=== PATIENT | female | born 1950 | race Caucasian/White ===

== ENCOUNTER 2018-02-02 06:41 | Day surgery (SDC) | payer MEDICARE, OTHER ==
[~2018-02-02] VITALS: Ht 154.9 cm; Wt 46.3 kg
[~2018-02-02 06:41] MED LIST: ALLO300 PO; CONEST.625; DICL.1SO OD; DULO60; ESTR2 PO; LORA1 PO; MELO7.5; MELO7.5 PO; OMEP40CA12; OXYACE5T; OXYACE5T PO; PANT40; POTCHL10ER; PRED20 PO; PREG25; PROC10 PO; PSEU120ER PO; Prevacid PO; TOLT2; TOLT2 PO; TOLT2ER; TRAM50 PO; VALA500 PO
[2018-02-02] MEDS ORDERED: Zantac25 MG/1 ML (07:25)
[2018-02-02] MEDS ORDERED: Hair, Skin & N1 EACH (07:25)
[2018-02-02] MEDS ORDERED: ACET120S (07:25)
[2018-02-02] MEDS ORDERED: Magnesium27 MG (07:26)
[2018-02-02] MEDS ORDERED: VIT1CAPS12 (07:26)
[2018-02-02] MEDS ORDERED: BRAIN MIGHT-DH1 EACH (07:26)
== END 2018-02-02 08:51 | disposition home or self-care (01) ==
LOC: ORSCSDS 06:41
PROVIDERS: Internal Medicine Gastroenterology
PROC: 0DB68ZX Excision of Stomach, Via Natural or Artificial Opening Endoscopic, Diagnostic (ICD-10-PCS; principal; 2018-02-02 08:00)
DX: K92.0 Hematemesis (principal); R13.10 Dysphagia, unspecified; E78.5 Hyperlipidemia, unspecified; Z87.891 Personal history of nicotine dependence; Z79.899 Other long term (current) drug therapy
CPT/HCPCS: 88305; 88342; J0330; J1980; J2405; J7120

== ENCOUNTER → 2018-03-19 | Outpatient (CLI) | payer MEDICARE, OTHER ==
[~2018-03-19] MED LIST changes: +ACET120S; +BRAIN MIGHT-DH1 EACH; +Hair, Skin & N1 EACH; +Magnesium27 MG; +VIT1CAPS12; +Zantac25 MG/1 ML
[2018-03-19 12:22] LABS: Source, Urine Clean Catch
[2018-03-19 17:45] LABS: Appearance, Urine Clear (Clear); Bilirubin, Urine Neg (Neg); Blood, Urine Neg (Neg); Color, Urine Yellow (P-Yellow); Glucose Qualitative, Urine Neg (Neg); Ketones, Urine Neg (Neg); Leukocyte Esterase, Urine Neg (Neg); Nitrite, Urine Neg (Neg); Protein, Urine Neg (Neg); Urobilinogen, Urine NORM (Normal)
== END | disposition home or self-care (01) ==
LOC: LAB 12:20 → LAB SHORT 12:20
PROVIDERS: Physician Assistant
DX: R77.0 Abnormality of albumin (principal)
CPT/HCPCS: 81003

== ENCOUNTER → 2018-03-22 | Outpatient (CLI) | payer MEDICARE, OTHER ==
[2018-03-22 14:31] LABS: Protein, Urine Quantitative 7.8 mg/dL (0.0-11.9)
== END | disposition home or self-care (01) ==
LOC: LAB SHORT 06:00 → LAB 06:00
PROVIDERS: Physician Assistant
DX: R77.0 Abnormality of albumin (principal)
CPT/HCPCS: 81050; 84156

== ENCOUNTER 2018-05-23 11:43 | Inpatient (IN) | payer MEDICARE, OTHER ==
[~2018-05-23] VITALS: Ht 154.9 cm; Wt 47.0 kg
[2018-05-23] MEDS ORDERED: LEVO750 PO (12:35)
[2018-05-23] MEDS ORDERED: BENZ100A (12:36)
[2018-05-23] MEDS ORDERED: Pantoprazole So40 MG PO (12:36)
[2018-05-23] MEDS ORDERED: Cyclobenzaprine5 MG PO (12:36)
[2018-05-23] MEDS ORDERED: Zantac150 MG PO (12:36)
[2018-05-23 12:43] LABS: BASOPHILS ABSOLUTE AUTO 0.04 K/mm3 (0.00-0.23); BASOPHILS PERCENT AUTO 0 % (0-2); EOSINOPHILS PERCENT AUTO 0 % (0-6); Hematocrit 30.2 % (33.0-51.0); Hemoglobin 9.6 g/dL (11.5-16.0); IMMATURE GRAN ABSOLUTE AUTO 0.37 K/mm3 (0.00-0.10); IMMATURE GRAN PERCENT AUTO 2 % (0-1); LYMPHOCYTES ABSOLUTE AUTO 1.34 K/mm3 (0.84-5.20); LYMPHOCYTES PERCENT AUTO 6 % (21-46); MONOCYTES PERCENT AUTO 5 % (4-13); Mean Corpuscular HGB 29.2 pg (26.0-34.0); Mean Corpuscular HGB Conc 31.8 g/dL (31.5-36.5); Mean Corpuscular Volume 92 fL (80-100); Mean Platelet Volume 8.1 fL (9.1-12.4); NEUTROPHILS ABSOLUTE AUTO 18.23 K/mm3 (1.96-9.15); NEUTROPHILS PERCENT AUTO 87 % (41-73); Platelet Count 575 K/mm3 (150-400); RDW Coefficient Variation 12.8 % (11.7-14.2); RDW Standard Deviation 42.8 fL (35.1-46.3); Red Blood Cell Count 3.29 M/mm3 (3.80-5.20); White Blood Cell Count 20.98 K/mm3 (4.00-11.30)
[2018-05-23 13:05] LABS: Calcium, Blood 9.2 mg/dL (8.5-10.1); Creatinine, Blood 1.25 mg/dL (0.40-1.00); Potassium, Blood 3.5 mmol/L (3.5-5.5)
[2018-05-23] MEDS ORDERED: ACET500 PO (14:04)
[2018-05-23] MEDS ORDERED: DULO60 PO (14:04)
[2018-05-23] MEDS ORDERED: PANT40 PO (14:06)
--- NOTE | 2018-05-23 17:05 | NUR ---
PT ADMITTED/SHIFT SUMMARY PT ADMITTED AT 1615. PT IN STABLE CONDITION. PT TEMP 100.8. 650 TYLENOL GIVEN. PT HAVING DIFFICULTY SWALLOWING. SOFT DIET ORDERED FOR THIS REASON. DR. KIM AWARE. SPEECH EVAL ORDERED FOR PT. PT STATES THAT HER RIBS ACHE FROM COUGHING. PT INSTRUCTED ON SPLINTING WITH A PILLOW. PT & FAMILY ORIENTED TO ROOM. CALL LIGHT IN REACH. WILL CONTINUE TO MONITOR UNTIL TURNOVER IS COMPLETE.
[2018-05-24 05:16] LABS: BASOPHILS ABSOLUTE AUTO 0.02 K/mm3 (0.00-0.23); BASOPHILS PERCENT AUTO 0 % (0-2); EOSINOPHILS PERCENT AUTO 0 % (0-6); Hemoglobin 8.6 g/dL (11.5-16.0); IMMATURE GRAN ABSOLUTE AUTO 0.16 K/mm3 (0.00-0.10); IMMATURE GRAN PERCENT AUTO 1 % (0-1); LYMPHOCYTES PERCENT AUTO 6 % (21-46); MONOCYTES ABSOLUTE AUTO 0.96 K/mm3 (0.16-1.47); MONOCYTES PERCENT AUTO 6 % (4-13); Mean Corpuscular HGB 29.1 pg (26.0-34.0); Mean Corpuscular HGB Conc 30.7 g/dL (31.5-36.5); Mean Platelet Volume 8.5 fL (9.1-12.4); NEUTROPHILS ABSOLUTE AUTO 14.64 K/mm3 (1.96-9.15); NEUTROPHILS PERCENT AUTO 87 % (41-73); Platelet Count 524 K/mm3 (150-400); RDW Coefficient Variation 12.9 % (11.7-14.2); RDW Standard Deviation 44.3 fL (35.1-46.3); Red Blood Cell Count 2.96 M/mm3 (3.80-5.20); White Blood Cell Count 16.78 K/mm3 (4.00-11.30)
[2018-05-24 05:19] LABS: Mean Corpuscular Volume 95 fL (80-100)
[2018-05-24 05:51] LABS: Bun/Creatinine Ratio 8.8 (12.0-20.0); Calcium, Blood 8.8 mg/dL (8.5-10.1); Creatinine, Blood 1.14 mg/dL (0.40-1.00); Potassium, Blood 3.7 mmol/L (3.5-5.5)
--- NOTE | 2018-05-24 07:15 | NUR ---
SHIFT SUMMARY PT A/O. OLGA RESENDIZ. C/O PAIN IN BACK AND MEDICATED PER EMAR X2. NEEDS MEDS CRUSHED IN APPLESAUCE. PUT FOAM EGGCRATE ON BED, SHE SAID IT HELPED A LITTLE BIT. SHE SAID SHE COULDN'T GET MUCH REST. OCCASIONAL CONGESTED SOUNDING COUGH. CALL LIGHT IN REACH.
--- NOTE | 2018-05-24 17:38 | NUR ---
SHIFT SUMMARY PT STATES THAT HER PAIN HAS BEEN MANAGABLE TODAY DUE TO MORE CONTROL OVER HER COUGHING. PT IND IN ROOM & TO THE BATHROOM. NO OTHER COMPLAINTS AT THIS TIME. NO OTHER CHANGES IN ASSESSMENT AT THIS TIME. VSS. PT REMAINS FREE OF FEVER THIS SHIFT. WILL CONTINUE TO MONITOR UNTIL TURNOVER IS COMPLETE.
[2018-05-25 05:16] LABS: BASOPHILS ABSOLUTE AUTO 0.01 K/mm3 (0.00-0.23); BASOPHILS PERCENT AUTO 0 % (0-2); EOSINOPHILS PERCENT AUTO 0 % (0-6); Hematocrit 28.2 % (33.0-51.0); IMMATURE GRAN ABSOLUTE AUTO 0.15 K/mm3 (0.00-0.10); IMMATURE GRAN PERCENT AUTO 1 % (0-1); LYMPHOCYTES ABSOLUTE AUTO 0.79 K/mm3 (0.84-5.20); LYMPHOCYTES PERCENT AUTO 7 % (21-46); MONOCYTES ABSOLUTE AUTO 0.65 K/mm3 (0.16-1.47); MONOCYTES PERCENT AUTO 5 % (4-13); Mean Corpuscular HGB 29.2 pg (26.0-34.0); Mean Corpuscular HGB Conc 31.9 g/dL (31.5-36.5); Mean Platelet Volume 8.4 fL (9.1-12.4); NEUTROPHILS ABSOLUTE AUTO 10.56 K/mm3 (1.96-9.15); NEUTROPHILS PERCENT AUTO 87 % (41-73); Platelet Count 604 K/mm3 (150-400); RDW Coefficient Variation 12.8 % (11.7-14.2); RDW Standard Deviation 42.5 fL (35.1-46.3); Red Blood Cell Count 3.08 M/mm3 (3.80-5.20); White Blood Cell Count 12.16 K/mm3 (4.00-11.30)
[2018-05-25 05:17] LABS: Mean Corpuscular Volume 92 fL (80-100)
[2018-05-25 05:34] LABS: Calcium, Blood 9.1 mg/dL (8.5-10.1); Creatinine, Blood 1.12 mg/dL (0.40-1.00); Potassium, Blood 3.7 mmol/L (3.5-5.5)
--- NOTE | 2018-05-25 06:25 | NUR ---
SHIFT SUMMARY PT A/O C/O PAIN IN RIB AREA MEDICATED PER KIKA Guido TYLENOL X2. REQUESTING PRN PEPCID AND GOT ORDER FROM DR OMALLEY SHE SAID HER HEARTBURN RESOLVED AFTER THAT. SHE SAID SHE WASN'T ABLE TO GET ANY SLEEP/COULD NOT SLEEP. CALL LIGHT IN REACH.
--- NOTE | 2018-05-25 15:49 | NUR ---
PT DISCHARGED PT DISCHARGED AT 1549. PT IN STABLE CONDITION WITH VSS. PT EDUCATED ON DC INSTRUCTIONS & MED CHANGES. PT STATES NO FURTHER QUESTIONS. PT PICKED UP & DRIVEN HOME BY HER SON.
== END 2018-05-25 15:48 | disposition home or self-care (01) | DRG 871 ==
LOC: ER 11:43 → MEDS 15:22
PROVIDERS: Emergency Medicine; ADMIT Student in an Organized Health Care Education/Training Program
DX: A41.9 Sepsis, unspecified organism (principal); J18.9 Pneumonia, unspecified organism; J44.0 Chronic obstructive pulmonary disease with (acute) lower respiratory infection; C85.90 Non-Hodgkin lymphoma, unspecified, unspecified site; I12.9 Hypertensive chronic kidney disease with stage 1 through stage 4 chronic kidney disease, or unspecified chronic kidney disease; N18.3 Chronic kidney disease, stage 3 (moderate); Z87.891 Personal history of nicotine dependence
CPT/HCPCS: 36415; 71046; 80048; 83605; 85025; 87040; 92610; 93005; 93010; 96360; 96361; 99285-25; J1650; J1956; J2930; J7030; J7050

== ENCOUNTER 2018-05-30 12:17 | Inpatient (IN) | payer MEDICARE, OTHER ==
[~2018-05-30] VITALS: Ht 160 cm; Wt 46.5 kg
[~2018-05-30 12:17] MED LIST changes: +ACET500 PO; +BENZ100A; +Cyclobenzaprine5 MG PO; +DULO60 PO; +LEVO750 PO; +PANT40 PO; +Pantoprazole So40 MG PO; +Zantac150 MG PO
[2018-05-30 12:58] LABS: Hematocrit 28.3 % (33.0-51.0); Hemoglobin 8.8 g/dL (11.5-16.0); Mean Corpuscular HGB 28.9 pg (26.0-34.0); Mean Corpuscular HGB Conc 31.1 g/dL (31.5-36.5); Mean Corpuscular Volume 93 fL (80-100); Platelet Count 739 K/mm3 (150-400); RDW Coefficient Variation 13.5 % (11.7-14.2); RDW Standard Deviation 45.7 fL (35.1-46.3); Red Blood Cell Count 3.05 M/mm3 (3.80-5.20); White Blood Cell Count 18.23 K/mm3 (4.00-11.30)
[2018-05-30 13:13] LABS: Albumin, Blood 2.2 g/dL (3.4-5.0); Albumin/Globulin Ratio 0.4 (0.8-1.8); Bilirubin, Total 0.5 mg/dL (0.1-1.0); Bun/Creatinine Ratio 10.4 (12.0-20.0); Calcium, Blood 8.8 mg/dL (8.5-10.1); Creatinine, Blood 1.15 mg/dL (0.40-1.00); Globulin, Blood 5.2 g/dL (2.2-4.0); Potassium, Blood 3.5 mmol/L (3.5-5.5); Total Protein, Blood 7.4 g/dL (6.4-8.2)
[2018-05-30 13:33] LABS: BAND PERCENT MAN 2 % (0-8); BASOPHILS PERCENT MAN 0 % (0-2); EOSINOPHILS PERCENT MAN 0 % (0-6); LYMPHOCYTES ABSOLUTE MAN 0.72 K/mm3 (0.84-5.20); LYMPHOCYTES PERCENT MAN 4 % (21-46); MONOCYTES ABSOLUTE MAN 0.91 K/mm3 (0.16-1.47); MONOCYTES PERCENT MAN 5 % (4-13); NEUTROPHILS ABSOLUTE MAN 16.58 K/mm3 (1.96-9.15); SEG NEUTROPHILS PERCENT MAN 89 % (41-73); TOTAL CELLS COUNTED 100
[2018-05-30] MEDS ORDERED: POTCHL10ER PO (14:03)
[2018-05-30] MEDS ORDERED: LISI5 PO (14:16)
--- NOTE | 2018-05-30 18:41 | NUR ---
SHIFT SUMMARY PATIENT ARRIVED VIA W/C TO THE UNIT. FAMILY AT BEDSIDE. ABLE TO MAKE HER NEEDS KNOWN.
--- NOTE | 2018-05-31 04:56 | NUR ---
Rn summary: Patient is alert and oriented. She had several visitor at beginning of shift. Pt has dangled at the bedside and walks with SBA to BR. Pt has had a non productive cough, has rib pain on left side with cough. Pt medicated at end of day shift and at 0315 for headache with tylenol 1000mg. Pt does get moderate relief. She states she has slept fairly well. Vital signs are stable. Call light in reach.
[2018-05-31 05:05] LABS: BASOPHILS ABSOLUTE AUTO 0.05 K/mm3 (0.00-0.23); BASOPHILS PERCENT AUTO 0 % (0-2); EOSINOPHILS ABSOLUTE AUTO 0.11 K/mm3 (0.00-0.68); EOSINOPHILS PERCENT AUTO 1 % (0-6); Hemoglobin 7.7 g/dL (11.5-16.0); IMMATURE GRAN ABSOLUTE AUTO 0.75 K/mm3 (0.00-0.10); IMMATURE GRAN PERCENT AUTO 6 % (0-1); LYMPHOCYTES ABSOLUTE AUTO 1.28 K/mm3 (0.84-5.20); LYMPHOCYTES PERCENT AUTO 10 % (21-46); MONOCYTES PERCENT AUTO 8 % (4-13); Mean Corpuscular HGB 28.5 pg (26.0-34.0); Mean Corpuscular HGB Conc 30.8 g/dL (31.5-36.5); Mean Corpuscular Volume 93 fL (80-100); Mean Platelet Volume 7.9 fL (9.1-12.4); NEUTROPHILS ABSOLUTE AUTO 9.14 K/mm3 (1.96-9.15); NEUTROPHILS PERCENT AUTO 74 % (41-73); Platelet Count 547 K/mm3 (150-400); RDW Coefficient Variation 13.3 % (11.7-14.2); RDW Standard Deviation 44.7 fL (35.1-46.3); White Blood Cell Count 12.33 K/mm3 (4.00-11.30)
[2018-05-31 05:24] LABS: BAND PERCENT MAN 3 % (0-8); BASOPHILS PERCENT MAN 0 % (0-2); EOSINOPHILS PERCENT MAN 0 % (0-6); LYMPHOCYTES ABSOLUTE MAN 0.49 K/mm3 (0.84-5.20); LYMPHOCYTES PERCENT MAN 4 % (21-46); METAMYELOCYTE ABSOLUTE MAN 0.24 K/mm3 (0.00-0.00); METAMYELOCYTE PERCENT MAN 2 % (0-0); MONOCYTES ABSOLUTE MAN 0.73 K/mm3 (0.16-1.47); MONOCYTES PERCENT MAN 6 % (4-13); MYELOCYTE ABSOLUTE MAN 0.12 K/mm3 (0.00-0.00); MYELOCYTE PERCENT MAN 1 % (0-0); PROMYELOCYTE ABSOLUTE MAN 0.12 K/mm3 (0.00-0.00); PROMYELOCYTE PERCENT MAN 1 % (0-0); SEG NEUTROPHILS PERCENT MAN 83 % (41-73); TOTAL CELLS COUNTED 100
[2018-05-31 05:33] LABS: Alanine Aminotransfer (ALT/SGP 30 U/L (12-78); Albumin, Blood 1.7 g/dL (3.4-5.0); Albumin/Globulin Ratio 0.4 (0.8-1.8); Alk Phos 137 U/L (50-136); Anion Gap 8 mmol/L (6-16); Aspartate Aminotrans (AST/SGOT 31 U/L (12-37); Bilirubin, Total 0.4 mg/dL (0.1-1.0); Blood Urea Nitrogen 12 mg/dL (8-24); Bun/Creatinine Ratio 11.3 (12.0-20.0); CO2, Blood 26 mmol/L (21-32); Chloride, Blood 105 mmol/L (98-108); Creatinine, Blood 1.06 mg/dL (0.40-1.00); Globulin, Blood 4.2 g/dL (2.2-4.0); Glomerular Filtration Rate 55 (60-); Glucose, Blood 87 mg/dL (70-99); Potassium, Blood 3.7 mmol/L (3.5-5.5); Sodium, Blood 139 mmol/L (136-145); Total Protein, Blood 5.9 g/dL (6.4-8.2); Vancomycin, Random 11.2 ug/mL
--- NOTE | 2018-05-31 16:38 | NUR ---
PT A/OX3, PLEASANT AND COOPERATIVE, THE PT IS UP WITH MINIMAL ASSIST, THE PT APPEARS TO BE BREATHING EASILY AT REST MILDLY SOB WITH ACTIVITY, THE PT HAS A PRODUCTIVE COUGH WITH THICK MUCUS , THE PT WAS GIVEN A FLUTTER VALVE TO HELP BRING UP THE PHLEMB, THE PT WAS MEDICATED X1 TODAY FOR HEADACHE DUE TO THE COUGH, THE PT WAS UP INTO THE SHOWER TODAY ASSISTED BY THE BULL GANG SUPERVISOR, CALL LIGHT IN REACH, WILL CONTINUE TO MONITOR AND ASSESS FOR CHANGES
--- NOTE | 2018-06-01 04:45 | NUR ---
67 Y/O FEMALE RESTED COMFORTABLY ALL EVENING WITH NO C/O NAUSEA OR PAIN. PT HAPPY AND COOPERATIVE ALL SHIFT. PTS BED IN LOW POSITION, CALL LIGHT AT SIDE.
[2018-06-01 05:42] LABS: Hematocrit 29.8 % (33.0-51.0); Hemoglobin 9.2 g/dL (11.5-16.0); Mean Corpuscular HGB 28.7 pg (26.0-34.0); Mean Corpuscular HGB Conc 30.9 g/dL (31.5-36.5); Mean Corpuscular Volume 93 fL (80-100); Platelet Count 662 K/mm3 (150-400); RDW Coefficient Variation 13.4 % (11.7-14.2); RDW Standard Deviation 45.6 fL (35.1-46.3); RETICULOCYTE ABSOLUTE 0.0902 M/mm3 (0.0200-0.1100); RETICULOCYTE COUNT PERCENT 2.81 % (0.50-2.50); Red Blood Cell Count 3.21 M/mm3 (3.80-5.20); White Blood Cell Count 14.15 K/mm3 (4.00-11.30)
[2018-06-01 05:50] LABS: Percent Saturation 13.6 % (15.0-50.0)
[2018-06-01 05:57] LABS: Albumin/Globulin Ratio 0.4 (0.8-1.8); Bilirubin, Total 0.4 mg/dL (0.1-1.0); Bun/Creatinine Ratio 8.7 (12.0-20.0); Calcium, Blood 8.8 mg/dL (8.5-10.1); Creatinine, Blood 1.15 mg/dL (0.40-1.00); Globulin, Blood 4.6 g/dL (2.2-4.0); Potassium, Blood 3.6 mmol/L (3.5-5.5); Total Protein, Blood 6.6 g/dL (6.4-8.2)
[2018-06-01 06:10] LABS: BASOPHILS PERCENT MAN 0 % (0-2); EOSINOPHILS ABSOLUTE MAN 0.14 K/mm3 (0.00-0.68); EOSINOPHILS PERCENT MAN 1 % (0-6); LYMPHOCYTES ABSOLUTE MAN 1.13 K/mm3 (0.84-5.20); LYMPHOCYTES PERCENT MAN 8 % (21-46); MONOCYTES PERCENT MAN 5 % (4-13); NEUTROPHILS ABSOLUTE MAN 12.16 K/mm3 (1.96-9.15); SEG NEUTROPHILS PERCENT MAN 86 % (41-73); TOTAL CELLS COUNTED 100
--- NOTE | 2018-06-01 10:52 | NUR ---
HYDRAULIC DREDGE OPERATOR DOC I AGREE WITH THE NURSING STUDENTS AM ASSESMENT OF THE PT, THE PT BREATH SOUNDS WERE DIMINISHED THIS AM, THE PT WAS MEDICATED FOR HEAD ACHE PAIN BY THE SN
--- NOTE | 2018-06-01 17:03 | NUR ---
End of shift summary. Pt is A/O. Pt has been awake during most of the shift with a small nap around noon. Pt states has had a headache and pain in her ribs throughout shift that has been reduced with medication. Pt states that the pain in the ribs if from coughing. Pt complained of depression starting this afternoon and expressed concern over not receiving her home medications which include Cymbalta. Pt's dr was contacted and home medications were added to the pt's orders. Pt reports reduction of depression after Cymbalta administration. Pt has since been calm. Pt took a walk through the unit this afternoon and sat in the lobby for a while. Pt is currently sitting on the side of the bed and states that she has no additional needs at this time.
--- NOTE | 2018-06-02 06:19 | NUR ---
VSS, AFEBRILE, A/O, PT AMB WELL, TOLERATING IV ABX W/OUT ADVERSE EFFECTS, PT SLEPT WELL OVERNOC, NO COMPLAINTS. WILL REPORT TO ON-COMING SHIFT.
--- NOTE | 2018-06-02 07:05 | NUR ---
Assumed care of patient with Bianca SHEPHERD
[2018-06-02 07:11] LABS: Hematocrit 27.1 % (33.0-51.0); Hemoglobin 8.2 g/dL (11.5-16.0); Mean Corpuscular HGB Conc 30.3 g/dL (31.5-36.5); Mean Corpuscular Volume 93 fL (80-100); Mean Platelet Volume 7.9 fL (9.1-12.4); Platelet Count 579 K/mm3 (150-400); RDW Coefficient Variation 13.4 % (11.7-14.2); RDW Standard Deviation 45.5 fL (35.1-46.3); Red Blood Cell Count 2.93 M/mm3 (3.80-5.20); White Blood Cell Count 10.93 K/mm3 (4.00-11.30)
[2018-06-02 07:39] LABS: BAND PERCENT MAN 2 % (0-8); BASOPHILS PERCENT MAN 0 % (0-2); EOSINOPHILS PERCENT MAN 0 % (0-6); LYMPHOCYTES PERCENT MAN 11 % (21-46); METAMYELOCYTE PERCENT MAN 1 % (0-0); MONOCYTES ABSOLUTE MAN 0.76 K/mm3 (0.16-1.47); MONOCYTES PERCENT MAN 7 % (4-13); NEUTROPHILS ABSOLUTE MAN 8.85 K/mm3 (1.96-9.15); SEG NEUTROPHILS PERCENT MAN 79 % (41-73); TOTAL CELLS COUNTED 100
[2018-06-02 07:47] LABS: Bun/Creatinine Ratio 11.7 (12.0-20.0); Calcium, Blood 8.4 mg/dL (8.5-10.1); Creatinine, Blood 1.11 mg/dL (0.40-1.00); Potassium, Blood 4.1 mmol/L (3.5-5.5); Total Protein, Blood 6.3 g/dL (6.4-8.2)
[2018-06-02 07:48] LABS: Albumin, Blood 1.9 g/dL (3.4-5.0); Albumin/Globulin Ratio 0.4 (0.8-1.8); Bilirubin, Total 0.3 mg/dL (0.1-1.0); Globulin, Blood 4.4 g/dL (2.2-4.0)
[2018-06-02 10:52] LABS: Stool Occult Bld Immuno 1 Negative (NEGATIVE)
--- NOTE | 2018-06-02 17:03 | NUR ---
Shift Summary A/O x 4 to self, situation, time, and place. Pleasant and cooperative with care t/o shift. Has been up in room and ambulating in hallway independently. Calls appropriately. Still c/o pain in ribs when coughing, but has not requested pain meds this shift. VSS.
[2018-06-03 05:10] LABS: Hematocrit 27.3 % (33.0-51.0); Hemoglobin 8.3 g/dL (11.5-16.0); Mean Corpuscular HGB 28.2 pg (26.0-34.0); Mean Corpuscular HGB Conc 30.4 g/dL (31.5-36.5); Mean Corpuscular Volume 93 fL (80-100); Mean Platelet Volume 7.9 fL (9.1-12.4); Platelet Count 593 K/mm3 (150-400); RDW Coefficient Variation 13.4 % (11.7-14.2); RDW Standard Deviation 45.1 fL (35.1-46.3); Red Blood Cell Count 2.94 M/mm3 (3.80-5.20); White Blood Cell Count 9.22 K/mm3 (4.00-11.30)
[2018-06-03 05:26] LABS: Bun/Creatinine Ratio 12.2 (12.0-20.0); Calcium, Blood 8.4 mg/dL (8.5-10.1); Creatinine, Blood 1.15 mg/dL (0.40-1.00); Potassium, Blood 3.7 mmol/L (3.5-5.5)
[2018-06-03 05:38] LABS: BAND PERCENT MAN 3 % (0-8); BASOPHILS ABSOLUTE MAN 0.18 K/mm3 (0.00-0.23); BASOPHILS PERCENT MAN 2 % (0-2); EOSINOPHILS PERCENT MAN 0 % (0-6); LYMPHOCYTES ABSOLUTE MAN 1.01 K/mm3 (0.84-5.20); LYMPHOCYTES PERCENT MAN 11 % (21-46); METAMYELOCYTE ABSOLUTE MAN 0.18 K/mm3 (0.00-0.00); METAMYELOCYTE PERCENT MAN 2 % (0-0); MONOCYTES ABSOLUTE MAN 0.36 K/mm3 (0.16-1.47); MONOCYTES PERCENT MAN 4 % (4-13); MYELOCYTE ABSOLUTE MAN 0.09 K/mm3 (0.00-0.00); MYELOCYTE PERCENT MAN 1 % (0-0); NEUTROPHILS ABSOLUTE MAN 7.37 K/mm3 (1.96-9.15); SEG NEUTROPHILS PERCENT MAN 77 % (41-73); TOTAL CELLS COUNTED 100
--- NOTE | 2018-06-03 06:25 | NUR ---
VSS, AFEBRILE, A/OX4, INDEPENDENT, OCC DRY COUGH THAT PT C/O IS PAINFUL TO HER RIBS, PT WAS MOVED FROM ROOM 331 TO 332 FOR FACILITY CONVENIENCE, PT IS COOPERATIVE AND PLEASANT, NO SIGNIFICANT CHANGES NOTED, SLEPT WELL, WILL REPORT TO ON-COMING SHIFT.
--- NOTE | 2018-06-03 09:07 | NUR ---
Assumed care of patient with Bianca SHEPHERD.
[2018-06-03] MEDS ORDERED: GUAI600T33 PO (11:16)
[2018-06-03] MEDS ORDERED: CEFD300 PO (11:18)
[2018-06-03] MEDS ORDERED: FERRO-TIME325 MG PO (11:34)
--- NOTE | 2018-06-03 12:39 | NUR ---
Patient discharged Discharge instructions, meds, and education packets were reviewed with patient. Meds were faxed to [facility]). Belongings were sent home with patient. She was given the opportunity to ask questions before escorted out via w/c by nurse. Patient was discharged to home with via car and instructed to follow-up with PCP in 1-2 weeks.
--- NOTE | 2018-06-03 12:51 | NUR ---
PT DISCHARGE. STUDENT COVERED DICHARGE SUMMARY, PLEASE REFER TO STUDENT NOTES.
== END 2018-06-03 12:40 | disposition home or self-care (01) | DRG 194 ==
LOC: ER 12:17 → MEDS 12:18 → ER 15:28 → MEDS 16:27 → ENPENDDIS 06-03 10:27 → MEDS 06-03 12:40
PROVIDERS: Emergency Medicine; Hospitalist; Physician Assistant; Student in an Organized Health Care Education/Training Program; ADMIT Internal Medicine Endocrinology, Diabetes & Metabolism
DX: J18.9 Pneumonia, unspecified organism (principal); E87.1 Hypo-osmolality and hyponatremia; J44.0 Chronic obstructive pulmonary disease with (acute) lower respiratory infection; Z85.71 Personal history of Hodgkin lymphoma; I12.9 Hypertensive chronic kidney disease with stage 1 through stage 4 chronic kidney disease, or unspecified chronic kidney disease; N18.3 Chronic kidney disease, stage 3 (moderate); D63.1 Anemia in chronic kidney disease; Z87.891 Personal history of nicotine dependence; K21.9 Gastro-esophageal reflux disease without esophagitis; E88.09 Other disorders of plasma-protein metabolism, not elsewhere classified
CPT/HCPCS: 36415; 80048; 80053; 80202; 82274; 82607; 82728; 82746; 83540; 83550; 83605; 84145; 85025; 85045; 87070; 87205; 93005; 93010; 94760; 96361; 96365; 96366; 96372; 99285-25; G0378; J0692; J0696; J1650; J3370; J3480; J7030; J7120

== ENCOUNTER → 2019-01-26 | Outpatient (CLI) | payer MEDICARE, OTHER ==
[~2019-01-26] MED LIST changes: +CEFD300 PO; +FERRO-TIME325 MG PO; +GUAI600T33 PO; +LISI5 PO; +POTCHL10ER PO
[2019-01-29 14:13] LABS: Stool Occult Bld Immuno 1 Positive (NEGATIVE); Stool Occult Bld Immuno 2 Positive (NEGATIVE); Stool Occult Bld Immuno 3 Positive (NEGATIVE)
== END ==
LOC: LAB 18:37 → LAB SHORT 18:37 → LAB FUT 01-22 09:50
PROVIDERS: Physician Assistant
DX: D50.9 Iron deficiency anemia, unspecified (principal)
CPT/HCPCS: 82274

== ENCOUNTER 2019-03-12 12:16 | Day surgery (SDC) | payer MEDICARE, OTHER ==
[~2019-03-12] VITALS: Ht 154.9 cm; Wt 50.0 kg
[2019-03-12] MEDS ORDERED: DULO60 PO (12:47)
== END 2019-03-12 14:53 | disposition home or self-care (01) ==
LOC: ORSCSDS 12:16
PROVIDERS: Internal Medicine Gastroenterology
PROC: 0DBK8ZX Excision of Ascending Colon, Via Natural or Artificial Opening Endoscopic, Diagnostic (ICD-10-PCS; principal; 2019-03-12 14:00)
PROC: 0DBL8ZX Excision of Transverse Colon, Via Natural or Artificial Opening Endoscopic, Diagnostic (ICD-10-PCS; principal; 2019-03-12 14:00)
PROC: 0DB98ZX Excision of Duodenum, Via Natural or Artificial Opening Endoscopic, Diagnostic (ICD-10-PCS; principal; 2019-03-12 14:00)
PROC: 0DB68ZX Excision of Stomach, Via Natural or Artificial Opening Endoscopic, Diagnostic (ICD-10-PCS; principal; 2019-03-12 14:00)
PROC: 0DBC8ZX Excision of Ileocecal Valve, Via Natural or Artificial Opening Endoscopic, Diagnostic (ICD-10-PCS; principal; 2019-03-12 14:00)
PROC: 0DBH8ZX Excision of Cecum, Via Natural or Artificial Opening Endoscopic, Diagnostic (ICD-10-PCS; principal; 2019-03-12 14:00)
DX: R19.5 Other fecal abnormalities (principal); D50.9 Iron deficiency anemia, unspecified; D12.3 Benign neoplasm of transverse colon; D12.0 Benign neoplasm of cecum; D12.2 Benign neoplasm of ascending colon; R10.13 Epigastric pain; K57.30 Diverticulosis of large intestine without perforation or abscess without bleeding; K64.8 Other hemorrhoids; I10 Essential (primary) hypertension; Z87.891 Personal history of nicotine dependence; Z79.899 Other long term (current) drug therapy
CPT/HCPCS: 88305; 88342; J2704; J7120

== ENCOUNTER → 2019-04-07 | Outpatient (CLI) | payer MEDICARE, OTHER ==
[2019-04-08 14:24] LABS: Stool Occult Bld Immuno 1 Negative (NEGATIVE); Stool Occult Bld Immuno 2 Negative (NEGATIVE); Stool Occult Bld Immuno 3 Negative (NEGATIVE)
== END | disposition home or self-care (01) ==
LOC: LAB 09:00 → LAB SHORT 09:00
PROVIDERS: Physician Assistant
DX: D50.9 Iron deficiency anemia, unspecified (principal)
CPT/HCPCS: 82274

== ENCOUNTER 2019-06-10 12:40 | Day surgery (SDC) | payer MEDICARE, OTHER ==
[~2019-06-10 12:40] MED LIST changes: +FAMO20 PO; +OMEP20ER PO
== END 2019-06-10 12:41 | disposition home or self-care (01) ==
LOC: ATC 12:40
DX: M46.22 Osteomyelitis of vertebra, cervical region (principal); I10 Essential (primary) hypertension; Z87.891 Personal history of nicotine dependence; Z88.0 Allergy status to penicillin; Z88.1 Allergy status to other antibiotic agents; Z91.011 Allergy to milk products; Z88.8 Allergy status to other drugs, medicaments and biological substances; Z79.899 Other long term (current) drug therapy
CPT/HCPCS: 96365; J0696

== ENCOUNTER 2019-06-11 00:20 | Day surgery (SDC) | payer MEDICARE, OTHER | END 2019-06-11 09:53 | disposition home or self-care (01) | LOC: ATC 00:20 | DX: M46.22 Osteomyelitis of vertebra, cervical region (principal); I10 Essential (primary) hypertension; Z87.891 Personal history of nicotine dependence; Z88.0 Allergy status to penicillin; Z88.1 Allergy status to other antibiotic agents; Z91.011 Allergy to milk products; Z88.8 Allergy status to other drugs, medicaments and biological substances; Z79.899 Other long term (current) drug therapy | CPT/HCPCS: 96365; J0696 ==

== ENCOUNTER 2019-06-12 00:03 | Day surgery (SDC) | payer MEDICARE, OTHER ==
[2019-06-13] MEDS ORDERED: FERSU300 PO (09:37)
[2019-06-14] MEDS ORDERED: Rocephin 1g1 G/50 ML IV (11:41)
== END 2019-06-12 08:52 | disposition home or self-care (01) ==
LOC: ATC 00:03
DX: M46.22 Osteomyelitis of vertebra, cervical region (principal); D37.05 Neoplasm of uncertain behavior of pharynx; J69.0 Pneumonitis due to inhalation of food and vomit; F32.9 Major depressive disorder, single episode, unspecified; K21.9 Gastro-esophageal reflux disease without esophagitis; Z79.899 Other long term (current) drug therapy; Z88.0 Allergy status to penicillin; Z88.2 Allergy status to sulfonamides; Z88.5 Allergy status to narcotic agent; Z91.011 Allergy to milk products; Z87.891 Personal history of nicotine dependence
CPT/HCPCS: 96365; J0696

== ENCOUNTER 2019-06-13 00:02 | Day surgery (SDC) | payer MEDICARE, OTHER ==
[2019-06-13] MEDS ORDERED: FERSU300 PO (09:37)
[2019-06-14] MEDS ORDERED: Rocephin 1g1 G/50 ML IV (11:41)
== END 2019-06-13 09:32 | disposition home or self-care (01) ==
LOC: ATC 00:02
DX: J69.0 Pneumonitis due to inhalation of food and vomit (principal); D37.05 Neoplasm of uncertain behavior of pharynx; Z87.891 Personal history of nicotine dependence; Z88.5 Allergy status to narcotic agent; Z88.0 Allergy status to penicillin; Z88.2 Allergy status to sulfonamides; Z88.8 Allergy status to other drugs, medicaments and biological substances; Z91.040 Latex allergy status; Z91.011 Allergy to milk products
CPT/HCPCS: 96365; J0696

== ENCOUNTER 2019-06-17 00:08 | Day surgery (SDC) | payer MEDICARE, OTHER ==
[~2019-06-17 00:08] MED LIST changes: +FERSU300 PO; +Rocephin 1g1 G/50 ML IV
[2019-06-17 10:13] LABS: BASOPHILS ABSOLUTE AUTO 0.09 K/mm3 (0.00-0.23); BASOPHILS PERCENT AUTO 2 % (0-2); EOSINOPHILS ABSOLUTE AUTO 0.08 K/mm3 (0.00-0.68); EOSINOPHILS PERCENT AUTO 2 % (0-6); Hematocrit 35.1 % (33.0-51.0); Hemoglobin 10.7 g/dL (11.5-16.0); IMMATURE GRAN ABSOLUTE AUTO 0.03 K/mm3 (0.00-0.10); IMMATURE GRAN PERCENT AUTO 1 % (0-1); LYMPHOCYTES ABSOLUTE AUTO 1.25 K/mm3 (0.84-5.20); LYMPHOCYTES PERCENT AUTO 25 % (21-46); MONOCYTES ABSOLUTE AUTO 0.44 K/mm3 (0.16-1.47); MONOCYTES PERCENT AUTO 9 % (4-13); Mean Corpuscular HGB 29.5 pg (26.0-34.0); Mean Corpuscular HGB Conc 30.5 g/dL (31.5-36.5); Mean Corpuscular Volume 97 fL (80-100); NEUTROPHILS ABSOLUTE AUTO 3.06 K/mm3 (1.96-9.15); NEUTROPHILS PERCENT AUTO 62 % (41-73); Platelet Count 369 K/mm3 (150-400); RDW Coefficient Variation 15.5 % (11.7-14.2); RDW Standard Deviation 55.1 fL (35.1-46.3); Red Blood Cell Count 3.63 M/mm3 (3.80-5.20); White Blood Cell Count 4.95 K/mm3 (4.00-11.30)
[2019-06-17 10:26] LABS: Albumin/Globulin Ratio 0.6 (0.8-1.8); Bilirubin, Total 0.2 mg/dL (0.1-1.0); C-REACTIVE PROTEIN, EXT RANGE 0.721 mg/dL (0.000-0.300); Calcium, Blood 8.7 mg/dL (8.5-10.1); Globulin, Blood 4.8 g/dL (2.2-4.0); Total Protein, Blood 7.8 g/dL (6.4-8.2)
== END 2019-06-17 09:40 | disposition home or self-care (01) ==
LOC: ATC 00:08
PROVIDERS: Internal Medicine
DX: M46.22 Osteomyelitis of vertebra, cervical region (principal); I10 Essential (primary) hypertension; K21.9 Gastro-esophageal reflux disease without esophagitis; G89.29 Other chronic pain; Z87.891 Personal history of nicotine dependence; Z88.0 Allergy status to penicillin; Z88.2 Allergy status to sulfonamides; Z88.1 Allergy status to other antibiotic agents; Z79.899 Other long term (current) drug therapy
CPT/HCPCS: 80053; 85025; 86140; J0696

== ENCOUNTER 2019-06-19 00:08 | Day surgery (SDC) | payer MEDICARE, OTHER | END 2019-06-19 09:39 | disposition home or self-care (01) | LOC: ATC 00:08 | DX: M46.22 Osteomyelitis of vertebra, cervical region (principal); D37.05 Neoplasm of uncertain behavior of pharynx; K21.9 Gastro-esophageal reflux disease without esophagitis; I10 Essential (primary) hypertension; G89.29 Other chronic pain; Z79.899 Other long term (current) drug therapy; Z88.0 Allergy status to penicillin; Z88.2 Allergy status to sulfonamides; Z88.5 Allergy status to narcotic agent; Z87.891 Personal history of nicotine dependence | CPT/HCPCS: 96365; J0696 ==

== ENCOUNTER 2019-06-20 00:12 | Day surgery (SDC) | payer MEDICARE, OTHER | END 2019-06-20 09:59 | disposition home or self-care (01) | LOC: ATC 00:12 | DX: D37.05 Neoplasm of uncertain behavior of pharynx (principal); J69.0 Pneumonitis due to inhalation of food and vomit; Z88.0 Allergy status to penicillin; Z87.891 Personal history of nicotine dependence; K21.9 Gastro-esophageal reflux disease without esophagitis; F32.9 Major depressive disorder, single episode, unspecified; Z79.899 Other long term (current) drug therapy | CPT/HCPCS: 96365; J0696 ==

== ENCOUNTER 2019-06-21 00:09 | Day surgery (SDC) | payer MEDICARE, OTHER | END 2019-06-21 09:50 | disposition home or self-care (01) | LOC: ATC 00:09 | DX: M46.22 Osteomyelitis of vertebra, cervical region (principal); I10 Essential (primary) hypertension; F32.9 Major depressive disorder, single episode, unspecified; K21.9 Gastro-esophageal reflux disease without esophagitis; Z87.891 Personal history of nicotine dependence; Z79.899 Other long term (current) drug therapy | CPT/HCPCS: J0696 ==

== ENCOUNTER 2019-06-24 00:16 | Day surgery (SDC) | payer MEDICARE, OTHER ==
[2019-06-24 09:28] LABS: BASOPHILS ABSOLUTE AUTO 0.08 K/mm3 (0.00-0.23); BASOPHILS PERCENT AUTO 2 % (0-2); EOSINOPHILS ABSOLUTE AUTO 0.14 K/mm3 (0.00-0.68); EOSINOPHILS PERCENT AUTO 3 % (0-6); Hematocrit 35.7 % (33.0-51.0); Hemoglobin 11.3 g/dL (11.5-16.0); IMMATURE GRAN ABSOLUTE AUTO 0.02 K/mm3 (0.00-0.10); IMMATURE GRAN PERCENT AUTO 1 % (0-1); LYMPHOCYTES ABSOLUTE AUTO 1.14 K/mm3 (0.84-5.20); LYMPHOCYTES PERCENT AUTO 26 % (21-46); MONOCYTES PERCENT AUTO 9 % (4-13); Mean Corpuscular HGB 30.5 pg (26.0-34.0); Mean Corpuscular HGB Conc 31.7 g/dL (31.5-36.5); Mean Corpuscular Volume 96 fL (80-100); Mean Platelet Volume 9.1 fL (9.1-12.4); NEUTROPHILS ABSOLUTE AUTO 2.56 K/mm3 (1.96-9.15); NEUTROPHILS PERCENT AUTO 59 % (41-73); Platelet Count 252 K/mm3 (150-400); RDW Coefficient Variation 14.6 % (11.7-14.2); RDW Standard Deviation 51.9 fL (35.1-46.3); Red Blood Cell Count 3.71 M/mm3 (3.80-5.20); White Blood Cell Count 4.34 K/mm3 (4.00-11.30)
[2019-06-24 09:48] LABS: Albumin, Blood 3.2 g/dL (3.4-5.0); Albumin/Globulin Ratio 0.7 (0.8-1.8); Bilirubin, Total 0.5 mg/dL (0.1-1.0); Bun/Creatinine Ratio 14.2 (12.0-20.0); C-REACTIVE PROTEIN, EXT RANGE 0.354 mg/dL (0.000-0.300); Creatinine, Blood 1.06 mg/dL (0.40-1.00); Globulin, Blood 4.8 g/dL (2.2-4.0)
== END 2019-06-24 09:37 | disposition home or self-care (01) ==
LOC: ATC 00:16
PROVIDERS: Internal Medicine
DX: M46.22 Osteomyelitis of vertebra, cervical region (principal); I10 Essential (primary) hypertension; K21.9 Gastro-esophageal reflux disease without esophagitis; Z88.0 Allergy status to penicillin; Z88.8 Allergy status to other drugs, medicaments and biological substances; Z88.1 Allergy status to other antibiotic agents; Z91.011 Allergy to milk products; Z87.891 Personal history of nicotine dependence; Z79.899 Other long term (current) drug therapy
CPT/HCPCS: 80053; 85025; 86140; J0696

== ENCOUNTER 2019-06-26 00:03 | Day surgery (SDC) | payer MEDICARE, OTHER | END 2019-06-26 09:21 | disposition home or self-care (01) | LOC: ATC 00:03 | DX: M46.22 Osteomyelitis of vertebra, cervical region (principal); I10 Essential (primary) hypertension; G89.29 Other chronic pain; K21.9 Gastro-esophageal reflux disease without esophagitis; Z87.891 Personal history of nicotine dependence; Z88.0 Allergy status to penicillin; Z88.2 Allergy status to sulfonamides; Z88.1 Allergy status to other antibiotic agents; Z91.011 Allergy to milk products | CPT/HCPCS: 96365; J0696 ==

== ENCOUNTER 2019-06-27 00:08 | Day surgery (SDC) | payer MEDICARE, OTHER | END 2019-06-27 09:30 | disposition home or self-care (01) | LOC: ATC 00:08 | DX: M46.22 Osteomyelitis of vertebra, cervical region (principal); I10 Essential (primary) hypertension; Z88.0 Allergy status to penicillin; Z88.2 Allergy status to sulfonamides; Z88.1 Allergy status to other antibiotic agents; Z91.011 Allergy to milk products; Z87.891 Personal history of nicotine dependence; Z79.899 Other long term (current) drug therapy | CPT/HCPCS: 96365; J0696 ==

== ENCOUNTER 2019-06-28 00:07 | Day surgery (SDC) | payer MEDICARE, OTHER | END 2019-06-28 09:41 | disposition home or self-care (01) | LOC: ATC 00:07 | DX: M46.22 Osteomyelitis of vertebra, cervical region (principal); I10 Essential (primary) hypertension; Z87.891 Personal history of nicotine dependence; Z88.0 Allergy status to penicillin; Z88.1 Allergy status to other antibiotic agents; Z91.011 Allergy to milk products; Z88.2 Allergy status to sulfonamides; Z88.8 Allergy status to other drugs, medicaments and biological substances; Z79.899 Other long term (current) drug therapy | CPT/HCPCS: 96365; J0696 ==

== ENCOUNTER 2019-07-02 00:05 | Day surgery (SDC) | payer MEDICARE, OTHER | END 2019-07-02 09:39 | disposition home or self-care (01) | DX: M46.22 Osteomyelitis of vertebra, cervical region (principal); D37.05 Neoplasm of uncertain behavior of pharynx; K21.9 Gastro-esophageal reflux disease without esophagitis; I10 Essential (primary) hypertension; F32.9 Major depressive disorder, single episode, unspecified; Z87.891 Personal history of nicotine dependence; Z79.899 Other long term (current) drug therapy; Z88.0 Allergy status to penicillin; Z88.2 Allergy status to sulfonamides; Z88.5 Allergy status to narcotic agent ==

== ENCOUNTER 2019-07-03 00:03 | Day surgery (SDC) | payer MEDICARE, OTHER | END 2019-07-03 09:28 | disposition home or self-care (01) | LOC: ATC 00:03 | DX: J69.0 Pneumonitis due to inhalation of food and vomit (principal); D37.05 Neoplasm of uncertain behavior of pharynx; I10 Essential (primary) hypertension; K21.9 Gastro-esophageal reflux disease without esophagitis; F32.9 Major depressive disorder, single episode, unspecified; Z79.899 Other long term (current) drug therapy; Z87.891 Personal history of nicotine dependence | CPT/HCPCS: 96365; J0696 ==

== ENCOUNTER 2019-07-04 | Day surgery (SDC) | payer MEDICARE, OTHER | END 2019-07-04 09:34 | disposition home or self-care (01) | LOC: ATC | DX: J69.0 Pneumonitis due to inhalation of food and vomit (principal); D37.05 Neoplasm of uncertain behavior of pharynx; I10 Essential (primary) hypertension; F32.9 Major depressive disorder, single episode, unspecified; K21.9 Gastro-esophageal reflux disease without esophagitis; Z87.891 Personal history of nicotine dependence; Z79.899 Other long term (current) drug therapy | CPT/HCPCS: 96365; J0696 ==

== ENCOUNTER 2019-07-05 07:08 | Day surgery (SDC) | payer MEDICARE, OTHER | END 2019-07-05 09:56 | disposition home or self-care (01) | LOC: ATC 07:08 | DX: M46.22 Osteomyelitis of vertebra, cervical region (principal); D37.05 Neoplasm of uncertain behavior of pharynx; I10 Essential (primary) hypertension; F32.9 Major depressive disorder, single episode, unspecified; K21.9 Gastro-esophageal reflux disease without esophagitis; Z88.0 Allergy status to penicillin; Z88.2 Allergy status to sulfonamides; Z88.5 Allergy status to narcotic agent | CPT/HCPCS: 96365; J0696 ==

== ENCOUNTER 2019-07-07 01:58 | Day surgery (SDC) | payer MEDICARE, OTHER | END 2019-07-07 09:24 | disposition home or self-care (01) | LOC: ATC 01:58 | DX: M46.22 Osteomyelitis of vertebra, cervical region (principal); D37.05 Neoplasm of uncertain behavior of pharynx; I10 Essential (primary) hypertension; F32.9 Major depressive disorder, single episode, unspecified; K21.9 Gastro-esophageal reflux disease without esophagitis; Z88.0 Allergy status to penicillin; Z88.2 Allergy status to sulfonamides; Z88.5 Allergy status to narcotic agent | CPT/HCPCS: 96365; J0696 ==

== ENCOUNTER 2019-07-10 00:02 | Day surgery (SDC) | payer MEDICARE, OTHER | END 2019-07-10 09:41 | disposition home or self-care (01) | LOC: ATC 00:02 | DX: M46.22 Osteomyelitis of vertebra, cervical region (principal); D37.05 Neoplasm of uncertain behavior of pharynx; I10 Essential (primary) hypertension; M19.90 Unspecified osteoarthritis, unspecified site; F32.9 Major depressive disorder, single episode, unspecified; K21.9 Gastro-esophageal reflux disease without esophagitis; Z79.899 Other long term (current) drug therapy; Z88.0 Allergy status to penicillin; Z88.2 Allergy status to sulfonamides; Z88.5 Allergy status to narcotic agent | CPT/HCPCS: 96365; J0696 ==

== ENCOUNTER 2019-07-11 00:03 | Day surgery (SDC) | payer MEDICARE, OTHER | END 2019-07-11 09:26 | disposition home or self-care (01) | LOC: ATC 00:03 | DX: M46.22 Osteomyelitis of vertebra, cervical region (principal); I10 Essential (primary) hypertension; K21.9 Gastro-esophageal reflux disease without esophagitis; Z79.899 Other long term (current) drug therapy; Z87.891 Personal history of nicotine dependence; Z88.0 Allergy status to penicillin; Z88.2 Allergy status to sulfonamides; Z88.8 Allergy status to other drugs, medicaments and biological substances; Z88.1 Allergy status to other antibiotic agents; Z91.011 Allergy to milk products | CPT/HCPCS: 96365; J0696 ==

== ENCOUNTER 2019-07-12 00:45 | Day surgery (SDC) | payer MEDICARE, OTHER | END 2019-07-12 09:29 | disposition home or self-care (01) | LOC: ATC 00:45 | DX: M46.22 Osteomyelitis of vertebra, cervical region (principal); Z88.5 Allergy status to narcotic agent; Z88.0 Allergy status to penicillin; Z88.2 Allergy status to sulfonamides; Z88.8 Allergy status to other drugs, medicaments and biological substances; Z91.011 Allergy to milk products; Z87.891 Personal history of nicotine dependence; J69.0 Pneumonitis due to inhalation of food and vomit; D37.05 Neoplasm of uncertain behavior of pharynx; I10 Essential (primary) hypertension; K21.9 Gastro-esophageal reflux disease without esophagitis; Z79.899 Other long term (current) drug therapy | CPT/HCPCS: 96365; J0696 ==

== ENCOUNTER 2019-07-13 00:40 | Day surgery (SDC) | payer MEDICARE, OTHER | END 2019-07-13 09:23 | disposition home or self-care (01) | LOC: ATC 00:40 | DX: M46.22 Osteomyelitis of vertebra, cervical region (principal); J69.0 Pneumonitis due to inhalation of food and vomit; D37.05 Neoplasm of uncertain behavior of pharynx; Z87.891 Personal history of nicotine dependence; Z88.5 Allergy status to narcotic agent; Z88.0 Allergy status to penicillin; Z88.2 Allergy status to sulfonamides; Z88.8 Allergy status to other drugs, medicaments and biological substances; Z91.011 Allergy to milk products; I10 Essential (primary) hypertension; K21.9 Gastro-esophageal reflux disease without esophagitis; F32.9 Major depressive disorder, single episode, unspecified; Z79.899 Other long term (current) drug therapy | CPT/HCPCS: 96365; J0696 ==

== ENCOUNTER 2019-07-14 00:09 | Day surgery (SDC) | payer MEDICARE, OTHER | END 2019-07-14 09:25 | disposition home or self-care (01) | LOC: ATC 00:09 | DX: M46.22 Osteomyelitis of vertebra, cervical region (principal); D37.05 Neoplasm of uncertain behavior of pharynx; Z88.0 Allergy status to penicillin; Z88.2 Allergy status to sulfonamides; Z88.5 Allergy status to narcotic agent | CPT/HCPCS: 96365; J0696 ==

== ENCOUNTER 2019-07-15 00:20 | Day surgery (SDC) | payer MEDICARE, OTHER ==
[2019-07-15 09:48] LABS: BASOPHILS ABSOLUTE AUTO 0.06 K/mm3 (0.00-0.23); BASOPHILS PERCENT AUTO 1 % (0-2); EOSINOPHILS ABSOLUTE AUTO 0.07 K/mm3 (0.00-0.68); EOSINOPHILS PERCENT AUTO 1 % (0-6); Hematocrit 35.3 % (33.0-51.0); Hemoglobin 11.2 g/dL (11.5-16.0); IMMATURE GRAN ABSOLUTE AUTO 0.01 K/mm3 (0.00-0.10); IMMATURE GRAN PERCENT AUTO 0 % (0-1); LYMPHOCYTES ABSOLUTE AUTO 1.13 K/mm3 (0.84-5.20); LYMPHOCYTES PERCENT AUTO 21 % (21-46); MONOCYTES ABSOLUTE AUTO 0.48 K/mm3 (0.16-1.47); MONOCYTES PERCENT AUTO 9 % (4-13); Mean Corpuscular HGB 30.5 pg (26.0-34.0); Mean Corpuscular HGB Conc 31.7 g/dL (31.5-36.5); Mean Corpuscular Volume 96 fL (80-100); Mean Platelet Volume 9.4 fL (9.1-12.4); NEUTROPHILS ABSOLUTE AUTO 3.61 K/mm3 (1.96-9.15); NEUTROPHILS PERCENT AUTO 67 % (41-73); Platelet Count 232 K/mm3 (150-400); RDW Coefficient Variation 12.9 % (11.7-14.2); RDW Standard Deviation 45.6 fL (35.1-46.3); Red Blood Cell Count 3.67 M/mm3 (3.80-5.20); White Blood Cell Count 5.36 K/mm3 (4.00-11.30)
[2019-07-15 10:21] LABS: C-REACTIVE PROTEIN, EXT RANGE 1.59 mg/dL (0.000-0.300)
[2019-07-15 10:23] LABS: Albumin, Blood 3.2 g/dL (3.4-5.0); Albumin/Globulin Ratio 0.8 (0.8-1.8); Bilirubin, Total 0.5 mg/dL (0.1-1.0); Bun/Creatinine Ratio 17.3 (12.0-20.0); Calcium, Blood 9.2 mg/dL (8.5-10.1); Creatinine, Blood 1.04 mg/dL (0.40-1.00); Globulin, Blood 4.2 g/dL (2.2-4.0); Total Protein, Blood 7.4 g/dL (6.4-8.2)
== END 2019-07-15 09:47 | disposition home or self-care (01) ==
LOC: ATC 00:20
PROVIDERS: Internal Medicine
DX: M46.22 Osteomyelitis of vertebra, cervical region (principal); I10 Essential (primary) hypertension; G89.29 Other chronic pain; K21.9 Gastro-esophageal reflux disease without esophagitis; Z87.891 Personal history of nicotine dependence; Z88.0 Allergy status to penicillin; Z88.1 Allergy status to other antibiotic agents; Z88.2 Allergy status to sulfonamides; Z79.899 Other long term (current) drug therapy
CPT/HCPCS: 80053; 85025; 86140; J0696

== ENCOUNTER 2019-07-16 00:10 | Day surgery (SDC) | payer MEDICARE, OTHER | END 2019-07-16 09:40 | disposition home or self-care (01) | LOC: ATC 00:10 | DX: M46.22 Osteomyelitis of vertebra, cervical region (principal); D37.05 Neoplasm of uncertain behavior of pharynx; Z88.0 Allergy status to penicillin; Z88.2 Allergy status to sulfonamides; Z88.5 Allergy status to narcotic agent; I10 Essential (primary) hypertension; K21.9 Gastro-esophageal reflux disease without esophagitis | CPT/HCPCS: 96365; J0696 ==

== ENCOUNTER 2020-07-04 20:42 | Emergency (ER) | payer MEDICARE, OTHER ==
[~2020-07-04] VITALS: Ht 154.9 cm; Wt 47.6 kg
[2020-07-04 22:07] LABS: BASOPHILS ABSOLUTE AUTO 0.05 K/mm3 (0.00-0.23); BASOPHILS PERCENT AUTO 1 % (0-2); EOSINOPHILS ABSOLUTE AUTO 0.05 K/mm3 (0.00-0.68); EOSINOPHILS PERCENT AUTO 1 % (0-6); Hematocrit 30.3 % (33.0-51.0); Hemoglobin 10.3 g/dL (11.5-16.0); IMMATURE GRAN ABSOLUTE AUTO 0.04 K/mm3 (0.00-0.10); IMMATURE GRAN PERCENT AUTO 1 % (0-1); LYMPHOCYTES ABSOLUTE AUTO 1.07 K/mm3 (0.84-5.20); LYMPHOCYTES PERCENT AUTO 13 % (21-46); MONOCYTES ABSOLUTE AUTO 0.51 K/mm3 (0.16-1.47); MONOCYTES PERCENT AUTO 6 % (4-13); Mean Corpuscular HGB 32.2 pg (26.0-34.0); Mean Corpuscular Volume 95 fL (80-100); Mean Platelet Volume 9.4 fL (9.1-12.4); NEUTROPHILS ABSOLUTE AUTO 6.59 K/mm3 (1.96-9.15); NEUTROPHILS PERCENT AUTO 79 % (41-73); Platelet Count 231 K/mm3 (150-400); RDW Coefficient Variation 11.8 % (11.7-14.2); RDW Standard Deviation 40.6 fL (35.1-46.3); White Blood Cell Count 8.31 K/mm3 (4.00-11.30)
[2020-07-04 22:12] LABS: Source, Urine Voided
[2020-07-04] MEDS ORDERED: TRAM50 (22:12)
[2020-07-04] MEDS ORDERED: HYDCHL25 PO (22:12)
[2020-07-04] MEDS ORDERED: PANTOPRAZOLE SO40 M2 PO (22:12)
[2020-07-04 22:14] LABS: Bilirubin, Urine Neg (Neg); Blood, Urine Neg (Neg); Glucose Qualitative, Urine Neg (Neg); Ketones, Urine Neg (Neg); Leukocyte Esterase, Urine 1+ (Neg); Nitrite, Urine Neg (Neg); Protein, Urine Neg (Neg); Specific Gravity, Urine 1.005 (1.003-1.022); Urobilinogen, Urine NORM (Normal)
[2020-07-04 22:28] LABS: Alanine Aminotransfer (ALT/SGP 20 U/L (12-78); Albumin, Blood 3.3 g/dL (3.4-5.0); Alk Phos 82 U/L (50-136); Anion Gap 6 mmol/L (6-16); Aspartate Aminotrans (AST/SGOT 24 U/L (12-37); Bilirubin, Total 0.3 mg/dL (0.1-1.0); Blood Urea Nitrogen 23 mg/dL (8-24); Bun/Creatinine Ratio 16.9 (12.0-20.0); CO2, Blood 26 mmol/L (21-32); Calcium, Blood 8.6 mg/dL (8.5-10.1); Chloride, Blood 106 mmol/L (98-108); Creatinine, Blood 1.36 mg/dL (0.40-1.00); Globulin, Blood 3.3 g/dL (2.2-4.0); Glomerular Filtration Rate 41 (60-); Glucose, Blood 119 mg/dL (70-99); Potassium, Blood 3.6 mmol/L (3.5-5.5); Sodium, Blood 138 mmol/L (136-145); Total Protein, Blood 6.6 g/dL (6.4-8.2); Troponin I <0.015 ng/mL (0.000-0.040)
[2020-07-04 22:28] LABS: Appearance, Urine Hazy (Clear); Bacteria Many /hpf; Color, Urine Yellow (P-Yellow); Red Blood Cells, Urine Not Seen /hpf (0-2); Squamous Epithelial Cells Mod /hpf (Few); White Blood Cells, Urine 50-100 /hpf (0-5)
[2020-07-04] MEDS ORDERED: CEFD300 PO (22:42)
== END 2020-07-04 23:46 | disposition home or self-care (01) ==
LOC: ER 20:42
PROVIDERS: Emergency Medicine
DX: R55 Syncope and collapse (principal); I12.9 Hypertensive chronic kidney disease with stage 1 through stage 4 chronic kidney disease, or unspecified chronic kidney disease; N18.30 Chronic kidney disease, stage 3 unspecified; Z79.899 Other long term (current) drug therapy; Z88.0 Allergy status to penicillin; Z88.1 Allergy status to other antibiotic agents; Z91.011 Allergy to milk products; Z87.891 Personal history of nicotine dependence
CPT/HCPCS: 71045; 80053; 81001; 84484; 85025; 87077; 87086; 87186; 93005; 93010; 96365; 99284-25; J0696; J7030

== ENCOUNTER 2020-10-21 14:01 | Inpatient (IN) | payer OTHER, MEDICARE ==
[~2020-10-21] VITALS: Ht 165.1 cm; Wt 49.9 kg
[~2020-10-21 14:01] MED LIST changes: +HYDCHL25 PO; +PANTOPRAZOLE SO40 M2 PO; +TRAM50
[2020-10-21 15:38] LABS: SARS-Cov-2 (COVID-19) PCR, MMC NEGATIVE (NEGATIVE)
[2020-10-21 16:08] LABS: BASOPHILS ABSOLUTE AUTO 0.04 K/mm3 (0.00-0.23); BASOPHILS PERCENT AUTO 1 % (0-2); EOSINOPHILS ABSOLUTE AUTO 0.05 K/mm3 (0.00-0.68); EOSINOPHILS PERCENT AUTO 1 % (0-6); Hematocrit 33.7 % (33.0-51.0); IMMATURE GRAN ABSOLUTE AUTO 0.04 K/mm3 (0.00-0.10); IMMATURE GRAN PERCENT AUTO 1 % (0-1); LYMPHOCYTES ABSOLUTE AUTO 0.96 K/mm3 (0.84-5.20); LYMPHOCYTES PERCENT AUTO 13 % (21-46); MONOCYTES ABSOLUTE AUTO 0.46 K/mm3 (0.16-1.47); MONOCYTES PERCENT AUTO 6 % (4-13); Mean Corpuscular HGB 31.6 pg (26.0-34.0); Mean Corpuscular HGB Conc 32.6 g/dL (31.5-36.5); Mean Corpuscular Volume 97 fL (80-100); Mean Platelet Volume 9.1 fL (9.1-12.4); NEUTROPHILS ABSOLUTE AUTO 6.12 K/mm3 (1.96-9.15); NEUTROPHILS PERCENT AUTO 80 % (41-73); Platelet Count 278 K/mm3 (150-400); RDW Coefficient Variation 11.7 % (11.7-14.2); RDW Standard Deviation 41.3 fL (35.1-46.3); Red Blood Cell Count 3.48 M/mm3 (3.80-5.20); White Blood Cell Count 7.67 K/mm3 (4.00-11.30)
--- NOTE | 2020-10-21 16:18 | NUR ---
PT TRANSFERED TO [facility] VIA BED FROM FLOOR. History, Chart, Medications and Allergies reviewed before start of procedure. Lungs clear T/O to Auscultation. Patient confirms NPO status and agrees with scheduled surgery. Pre-Op teaching done. Pt verbalizes understanding.
[2020-10-21 16:37] LABS: Albumin, Blood 4.1 g/dL (3.4-5.0); Albumin/Globulin Ratio 1.1 (0.8-1.8); Bilirubin, Total 0.5 mg/dL (0.1-1.0); Bun/Creatinine Ratio 12.2 (12.0-20.0); Calcium, Blood 9.5 mg/dL (8.5-10.1); Creatinine, Blood 1.31 mg/dL (0.40-1.00); Globulin, Blood 3.9 g/dL (2.2-4.0); Potassium, Blood 3.9 mmol/L (3.5-5.5)
--- NOTE | 2020-10-21 16:38 | NUR ---
ASSUMED CARE AND REPORT FROM YURI GARCIA FOR EKG. PT HAS A NEGATIVE COVID.
--- NOTE | 2020-10-21 17:29 | NUR ---
PT TO UNIT FROM [facility] WITH EMS AT ABOUT 1450. TRANSFERED FROM [facility] TO BED. PT IS A/O, VSS. PT REPORTS PAIN AT R HIP WITH MOVEMENT, SCM INTACT TO L LEG. NOTIFIED DR. REYNOSO OF PT ARRIVAL, DR. BARRIOS IN TO SEE PT AT ABOUT 1530. WILL PREP PT FOR SURGERY AND CTM.
--- NOTE | 2020-10-21 18:37 | NUR ---
POST OP: REPORT RECEIVED FROM EXECUTIVE OFFICER DAVE AT THIS TIME
--- NOTE | 2020-10-21 19:06 | NUR ---
SUMMARY: PT TO UNIT AT ABOUT 1845 FROM PACU. A/O, VSS. SURGICAL SITE WNL. PT REPORTS MINIMAL PAIN, NO N/V. ABLE TO TAKE SIPS OF WATER. REPORT PASSED TO NOC RN AT THIS TIME.
[2020-10-22 04:37] LABS: BASOPHILS ABSOLUTE AUTO 0.01 K/mm3 (0.00-0.23); BASOPHILS PERCENT AUTO 0 % (0-2); EOSINOPHILS PERCENT AUTO 0 % (0-6); IMMATURE GRAN ABSOLUTE AUTO 0.02 K/mm3 (0.00-0.10); IMMATURE GRAN PERCENT AUTO 0 % (0-1); LYMPHOCYTES ABSOLUTE AUTO 0.45 K/mm3 (0.84-5.20); LYMPHOCYTES PERCENT AUTO 8 % (21-46); MONOCYTES ABSOLUTE AUTO 0.18 K/mm3 (0.16-1.47); MONOCYTES PERCENT AUTO 3 % (4-13); Mean Corpuscular HGB 31.8 pg (26.0-34.0); Mean Corpuscular HGB Conc 33.3 g/dL (31.5-36.5); Mean Corpuscular Volume 96 fL (80-100); Mean Platelet Volume 9.3 fL (9.1-12.4); NEUTROPHILS ABSOLUTE AUTO 4.67 K/mm3 (1.96-9.15); NEUTROPHILS PERCENT AUTO 88 % (41-73); Platelet Count 249 K/mm3 (150-400); RDW Coefficient Variation 11.4 % (11.7-14.2); RDW Standard Deviation 40.3 fL (35.1-46.3); Red Blood Cell Count 3.14 M/mm3 (3.80-5.20); White Blood Cell Count 5.33 K/mm3 (4.00-11.30)
[2020-10-22 04:56] LABS: Albumin, Blood 3.4 g/dL (3.4-5.0); Albumin/Globulin Ratio 0.9 (0.8-1.8); Bilirubin, Total 0.5 mg/dL (0.1-1.0); Bun/Creatinine Ratio 13.6 (12.0-20.0); Calcium, Blood 8.9 mg/dL (8.5-10.1); Creatinine, Blood 1.18 mg/dL (0.40-1.00); Globulin, Blood 3.7 g/dL (2.2-4.0); Potassium, Blood 4.5 mmol/L (3.5-5.5); Total Protein, Blood 7.1 g/dL (6.4-8.2)
--- NOTE | 2020-10-22 09:08 | NUR ---
SPEECH THERAPY IN TO SEE PT.
--- NOTE | 2020-10-22 10:06 | NUR ---
NOTIFIED DR Mikaela BARRIOS OF PT'S STRICT NPO STATUS PER ST.
--- NOTE | 2020-10-22 13:51 | NUR ---
ADMIT: 10/21/20 DISCHARGE: DX: Right hip fracture CC: kwilcox KIERAN CALL: RESIDENCE: Home with spouse CAREGIVER: Zack Barrow, Spouse / Partner, Teodora, Child, DX: CKD- stage 3, HTN, headache, non-hodgkins lymphoma, see list DME: CCM: Referral -2019 HOME HEALTH: none SUMMARY: 10/22/20- Debra matias completed and recommended that she go to rehab for her broken hip and speech should work with her throughout her therapy. Pt had surgery yesterday to fix broken hip. No d/c plan at this time. -mike
--- NOTE | 2020-10-22 19:01 | NUR ---
SUMMARY ST ORDERED PT TO BE STRICT NPO TODAY AND PLANS TO REEVALUATE TOMORROW. PT SAT UP IN CHAIR AND WORKED W/THERAPY THIS EVENING. MEDICATED PER ORDERS FOR PAIN. CALL LIGHT IN REACH. REPORT GIVEN TO ONCOMING SHIFT.
--- NOTE | 2020-10-23 10:03 | NUR ---
TO RADIOLOGY VIA WHEELCHAIR
--- NOTE | 2020-10-23 11:30 | NUR ---
1040 [facility] [place] TELLS ME SHE HAS A FISTULA IN THROAT
--- NOTE | 2020-10-23 14:01 | NUR ---
10/23/20- spoke with pt and let her know that she will most likely be d/c over the weekend. Pt reports that she lives at home with her . They do no live in a single story home, having working utilities and there are stairs. Pt reports that she will have a ride home from one of her children picking her up. She would like to use [facility] for home health services. She would like to have a 4WW. No concerns about going home. -kjw
--- NOTE | 2020-10-23 18:10 | NUR ---
PT REPORTS PAIN IS ADEQUATELY CONTROLLED AT THIS TIME AND DENIES NEED FOR PAIN MEDS. PT REMAINS NPO AWAITING PHYSICIAN ROUNDS
[2020-10-24 04:47] LABS: BASOPHILS ABSOLUTE AUTO 0.02 K/mm3 (0.00-0.23); BASOPHILS PERCENT AUTO 0 % (0-2); EOSINOPHILS ABSOLUTE AUTO 0.03 K/mm3 (0.00-0.68); EOSINOPHILS PERCENT AUTO 1 % (0-6); Hematocrit 32.9 % (33.0-51.0); Hemoglobin 10.7 g/dL (11.5-16.0); IMMATURE GRAN ABSOLUTE AUTO 0.02 K/mm3 (0.00-0.10); IMMATURE GRAN PERCENT AUTO 0 % (0-1); LYMPHOCYTES ABSOLUTE AUTO 0.94 K/mm3 (0.84-5.20); LYMPHOCYTES PERCENT AUTO 14 % (21-46); MONOCYTES ABSOLUTE AUTO 0.54 K/mm3 (0.16-1.47); MONOCYTES PERCENT AUTO 8 % (4-13); Mean Corpuscular HGB 31.5 pg (26.0-34.0); Mean Corpuscular HGB Conc 32.5 g/dL (31.5-36.5); Mean Corpuscular Volume 97 fL (80-100); Mean Platelet Volume 9.4 fL (9.1-12.4); NEUTROPHILS ABSOLUTE AUTO 5.02 K/mm3 (1.96-9.15); NEUTROPHILS PERCENT AUTO 76 % (41-73); Platelet Count 275 K/mm3 (150-400); RDW Coefficient Variation 11.3 % (11.7-14.2); RDW Standard Deviation 40.2 fL (35.1-46.3); White Blood Cell Count 6.57 K/mm3 (4.00-11.30)
[2020-10-24 05:08] LABS: Bun/Creatinine Ratio 16.8 (12.0-20.0); Calcium, Blood 9.2 mg/dL (8.5-10.1); Creatinine, Blood 1.07 mg/dL (0.40-1.00); Potassium, Blood 3.5 mmol/L (3.5-5.5)
[2020-10-24] MEDS ORDERED: Amlodipine Bes2.5 MG PO (14:02)
[2020-10-24] MEDS ORDERED: ROXICODONE5 MG PO (14:04)
--- NOTE | 2020-10-24 16:19 | NUR ---
DISCHARGE SUMMARY WRITTEN AND VERBAL DISCHARGE TEACHING DONE. PT STATES SHE UNDERSTANDS. IV REMOVED WNL. PT ABLE TO AMBULATE TO BATHROOM WITH WALKER PRIOR TO DISCHARGE. PT STATES DAUGHTERS WILL CHECK IN ON HER AND HER IS HOME TO HELP WITH CARE. PATIENT DISCHARGED HOME. TAKEN OUT IN WHEELCHAIR BY HELPING HANDS. PERSONAL BELONGINGS TAKEN OUT WITH PATIENT. TOLERATING PO INTAKE VIA DIET ORDER, VOIDING WELL. PAIN MANAGED WITH PO PAIN MEDICATION.
== END 2020-10-24 16:16 | disposition home or self-care (01) | DRG 481 ==
LOC: SURS 14:01
PROVIDERS: Family Medicine; Orthopaedic Surgery; ADMIT Family Medicine
PROC: 0QH634Z Insertion of Internal Fixation Device into Right Upper Femur, Percutaneous Approach (ICD-10-PCS; principal; 2020-10-21 15:30)
DX: M80.051A Age-related osteoporosis with current pathological fracture, right femur, initial encounter for fracture (principal); I42.9 Cardiomyopathy, unspecified; M46.22 Osteomyelitis of vertebra, cervical region; Z20.822 Contact with and (suspected) exposure to COVID-19; R13.10 Dysphagia, unspecified; E04.1 Nontoxic single thyroid nodule; I12.9 Hypertensive chronic kidney disease with stage 1 through stage 4 chronic kidney disease, or unspecified chronic kidney disease; N18.30 Chronic kidney disease, stage 3 unspecified; M41.9 Scoliosis, unspecified; K21.9 Gastro-esophageal reflux disease without esophagitis; E78.5 Hyperlipidemia, unspecified; G89.4 Chronic pain syndrome; D64.9 Anemia, unspecified; E83.110 Hereditary hemochromatosis; M50.30 Other cervical disc degeneration, unspecified cervical region; M51.16 Intervertebral disc disorders with radiculopathy, lumbar region; W01.0XXA Fall on same level from slipping, tripping and stumbling without subsequent striking against object, initial encounter; Y92.009 Unspecified place in unspecified non-institutional (private) residence as the place of occurrence of the external cause; Z85.72 Personal history of non-Hodgkin lymphomas; Z98.1 Arthrodesis status; Z87.891 Personal history of nicotine dependence; Z87.01 Personal history of pneumonia (recurrent); Z88.0 Allergy status to penicillin; Z88.8 Allergy status to other drugs, medicaments and biological substances; Z88.2 Allergy status to sulfonamides; Z79.899 Other long term (current) drug therapy
CPT/HCPCS: 36415; 74230; 80048; 80053; 82947; 85025; 92610; 92611; 93005; 93010; 97110; 97116; 97163; 97166; 97535; A9270; C1713; C1769; C9113; J0171; J0330; J0690; J1100; J1170; J2370; J2405; J2704; J3010; J7120; U0004

== ENCOUNTER → 2021-01-13 | Outpatient (CLI) | payer MEDICARE ==
[~2021-01-13] MED LIST changes: +Amlodipine Bes2.5 MG PO; +ROXICODONE5 MG PO
== END ==
LOC: LAB SHORT 11:58 → LAB 11:58
DX: N39.0 Urinary tract infection, site not specified (principal)
CPT/HCPCS: 87077; 87086; 87186

== ENCOUNTER 2021-08-26 12:05 | Emergency (ER) | payer MEDICARE, OTHER ==
[~2021-08-26] VITALS: Ht 165.1 cm; Wt 49.9 kg
[2021-08-26] MEDS ORDERED: Norco 5-325 Ta1 EACH PO (16:21)
== END 2021-08-26 16:45 | disposition home or self-care (01) ==
LOC: ER 12:05
DX: S52.591A Other fractures of lower end of right radius, initial encounter for closed fracture (principal); I12.9 Hypertensive chronic kidney disease with stage 1 through stage 4 chronic kidney disease, or unspecified chronic kidney disease; N18.30 Chronic kidney disease, stage 3 unspecified; W19.XXXA Unspecified fall, initial encounter; Z88.2 Allergy status to sulfonamides; Z91.011 Allergy to milk products; Z88.8 Allergy status to other drugs, medicaments and biological substances; Z79.899 Other long term (current) drug therapy; Z87.891 Personal history of nicotine dependence; Z88.0 Allergy status to penicillin
CPT/HCPCS: 25605; 73100; 96374; 96375; 96376; 99283-25; J2405; J3010

== ENCOUNTER 2021-09-13 09:24 | Day surgery (SDC) | payer MEDICARE, OTHER ==
[~2021-09-13] VITALS: Ht 154.9 cm; Wt 50.6 kg
[~2021-09-13 09:24] MED LIST changes: +Norco 5-325 Ta1 EACH PO
--- NOTE | 2021-09-13 09:42 | NUR ---
History, Chart, Medications and Allergies reviewed before start of procedure. Patient confirms NPO status and agrees with scheduled surgery. Patient States Post-Procedure ride home has been arranged.
--- NOTE | 2021-09-13 13:56 | NUR ---
Discharge instructions reviewed with patient. Patient verbalizes understanding. Copy given to patient to take home. Dressing to procedure site clean, dry, intact with no visible drainage, swelling, erythema or bruising noted. Patient States Post-Procedure ride home has been arranged.
== END 2021-09-13 13:55 | disposition home or self-care (01) ==
LOC: ORSCMMR 09:24 → ORD 10:30 → ORSCMMR 13:55
PROVIDERS: Orthopaedic Surgery
PROC: 0PSH04Z Reposition Right Radius with Internal Fixation Device, Open Approach (ICD-10-PCS; principal; 2021-09-13 10:30)
DX: S52.571A Other intraarticular fracture of lower end of right radius, initial encounter for closed fracture (principal); I12.9 Hypertensive chronic kidney disease with stage 1 through stage 4 chronic kidney disease, or unspecified chronic kidney disease; N18.9 Chronic kidney disease, unspecified; Z79.899 Other long term (current) drug therapy; K21.9 Gastro-esophageal reflux disease without esophagitis
CPT/HCPCS: A9270; C1713; J0690; J1100; J2250; J2370; J2405; J2704; J3010

== ENCOUNTER → 2021-10-15 | Outpatient (CLI) | payer MEDICARE, OTHER ==
[2021-10-15 09:04] LABS: BASOPHILS ABSOLUTE AUTO 0.05 K/mm3 (0.00-0.23); BASOPHILS PERCENT AUTO 0 % (0-2); EOSINOPHILS ABSOLUTE AUTO 0.04 K/mm3 (0.00-0.68); EOSINOPHILS PERCENT AUTO 0 % (0-6); Hematocrit 36.5 % (33.0-51.0); Hemoglobin 12.2 g/dL (11.5-16.0); IMMATURE GRAN ABSOLUTE AUTO 0.08 K/mm3 (0.00-0.10); IMMATURE GRAN PERCENT AUTO 1 % (0-1); LYMPHOCYTES ABSOLUTE AUTO 1.11 K/mm3 (0.84-5.20); LYMPHOCYTES PERCENT AUTO 8 % (21-46); MONOCYTES PERCENT AUTO 7 % (4-13); Mean Corpuscular HGB 31.7 pg (26.0-34.0); Mean Corpuscular HGB Conc 33.4 g/dL (31.5-36.5); Mean Corpuscular Volume 95 fL (80-100); Mean Platelet Volume 9.2 fL (9.1-12.4); NEUTROPHILS ABSOLUTE AUTO 12.32 K/mm3 (1.96-9.15); NEUTROPHILS PERCENT AUTO 85 % (41-73); Platelet Count 304 K/mm3 (150-400); RDW Coefficient Variation 12.3 % (11.7-14.2); RDW Standard Deviation 42.7 fL (35.1-46.3); Red Blood Cell Count 3.85 M/mm3 (3.80-5.20)
[2021-10-15 09:51] LABS: Bilirubin, Total 1.1 mg/dL (0.1-1.0); Bun/Creatinine Ratio 12.4 (12.0-20.0); Calcium, Blood 9.3 mg/dL (8.5-10.1); Creatinine, Blood 1.53 mg/dL (0.40-1.00); Globulin, Blood 3.9 g/dL (2.2-4.0); Total Protein, Blood 7.9 g/dL (6.4-8.2)
== END | disposition home or self-care (01) ==
LOC: LAB 08:53 → LAB SHORT 08:53
PROVIDERS: Physician Assistant
DX: R10.32 Left lower quadrant pain (principal)
CPT/HCPCS: 80053; 83690; 85025

== ENCOUNTER → 2021-10-18 | Outpatient (CLI) | payer MEDICARE, OTHER | END | disposition home or self-care (01) | LOC: LAB SHORT 08:45 → LAB 08:45 | DX: K92.1 Melena (principal) | CPT/HCPCS: 87015; 87045; 87046; 87205; 87899 ==

== ENCOUNTER 2022-01-01 20:23 | Emergency (ER) | payer MEDICARE, OTHER ==
[~2022-01-01] VITALS: Ht 154.9 cm; Wt 52.2 kg
[2022-01-01 21:21] LABS: BASOPHILS ABSOLUTE AUTO 0.06 K/mm3 (0.00-0.23); BASOPHILS PERCENT AUTO 1 % (0-2); EOSINOPHILS ABSOLUTE AUTO 0.08 K/mm3 (0.00-0.68); EOSINOPHILS PERCENT AUTO 1 % (0-6); Hematocrit 37.8 % (33.0-51.0); IMMATURE GRAN ABSOLUTE AUTO 0.02 K/mm3 (0.00-0.10); IMMATURE GRAN PERCENT AUTO 0 % (0-1); LYMPHOCYTES ABSOLUTE AUTO 1.45 K/mm3 (0.84-5.20); LYMPHOCYTES PERCENT AUTO 23 % (21-46); MONOCYTES ABSOLUTE AUTO 0.51 K/mm3 (0.16-1.47); MONOCYTES PERCENT AUTO 8 % (4-13); Mean Corpuscular HGB 30.9 pg (26.0-34.0); Mean Corpuscular HGB Conc 31.7 g/dL (31.5-36.5); Mean Corpuscular Volume 97 fL (80-100); NEUTROPHILS ABSOLUTE AUTO 4.18 K/mm3 (1.96-9.15); NEUTROPHILS PERCENT AUTO 66 % (41-73); Platelet Count 258 K/mm3 (150-400); RDW Coefficient Variation 11.9 % (11.7-14.2); RDW Standard Deviation 42.5 fL (35.1-46.3); Red Blood Cell Count 3.88 M/mm3 (3.80-5.20)
[2022-01-01 21:30] LABS: Albumin, Blood 3.9 g/dL (3.4-5.0); Albumin/Globulin Ratio 1.1 (0.8-1.8); Bilirubin, Total 0.4 mg/dL (0.1-1.0); Bun/Creatinine Ratio 17.2 (12.0-20.0); Calcium, Blood 9.6 mg/dL (8.5-10.1); Creatinine, Blood 1.34 mg/dL (0.40-1.00); Globulin, Blood 3.6 g/dL (2.2-4.0); Potassium, Blood 3.9 mmol/L (3.5-5.5); Total Protein, Blood 7.5 g/dL (6.4-8.2)
== END 2022-01-02 00:23 | disposition home or self-care (01) ==
LOC: ER 20:23
PROVIDERS: Student in an Organized Health Care Education/Training Program
DX: R55 Syncope and collapse (principal); I12.9 Hypertensive chronic kidney disease with stage 1 through stage 4 chronic kidney disease, or unspecified chronic kidney disease; N18.30 Chronic kidney disease, stage 3 unspecified; Z88.0 Allergy status to penicillin; Z88.2 Allergy status to sulfonamides; Z88.8 Allergy status to other drugs, medicaments and biological substances; Z91.011 Allergy to milk products; Z79.899 Other long term (current) drug therapy; Z87.891 Personal history of nicotine dependence
CPT/HCPCS: 36415; 71045; 80053; 84484; 85025; 93005; 93010

== ENCOUNTER → 2022-04-06 | Outpatient (CLI) | payer OTHER ==
[2022-04-07 14:48] LABS: Adenovirus F 40/41 Not Detected (NOT DETECT); Astrovirus Not Detected (NOT DETECT); Campylobacter Sp Not Detected (NOT DETECT); Cryptosporidium Not Detected (NOT DETECT); Cyclospora Cayetanensis Not Detected (NOT DETECT); E. Coli O157 Not Detected (NOT DETECT); Entamoeba Histolytica Not Detected (NOT DETECT); Enteroaggregative E. coli-EAEC Not Detected (NOT DETECT); Enteropathogenic E. coli-EPEC Not Detected (NOT DETECT); Enterotoxigenic E. coli-ETEC Not Detected (NOT DETECT); Giardia Lamblia Not Detected (NOT DETECT); Norovirus GI/GII Not Detected (NOT DETECT); Plesiomonas Shigelloides Not Detected (NOT DETECT); Rotavirus A Not Detected (NOT DETECT); Salmonella Sp Not Detected (NOT DETECT); Sapovirus Not Detected (NOT DETECT); Shiga Toxin-prod E. coli-STEC Not Detected (NOT DETECT); Shigella/Enteroin E. coli-EIEC Not Detected (NOT DETECT); Vibrio Cholerae Not Detected (NOT DETECT); Vibrio Sp Not Detected (NOT DETECT); Yersinia Enterocolitica Not Detected (NOT DETECT)
== END | disposition home or self-care (01) ==
LOC: LAB SHORT 07:00
PROVIDERS: Physician Assistant
DX: R19.7 Diarrhea, unspecified (principal)
CPT/HCPCS: 87507

== ENCOUNTER 2023-02-22 10:00 | Day surgery (SDC) | payer OTHER ==
[~2023-02-22] VITALS: Ht 154.9 cm; Wt 51.7 kg
[~2023-02-22 10:00] MED LIST changes: +ACIDOPHILUS1 EAC1 PO; +CALTRATE 600 P1 EACH PO; +FAMO10 PO; -LISI5 PO; +METO100ER PO; +MULTIPLE VITAM1 EACH PO; +NITR.4SL SL; +Vitamin D1000 UNI1 PO; +ZESTRIL40 MG PO
[2023-02-22 13:04] VITALS: BP 138/79
== END 2023-02-22 13:06 | disposition home or self-care (01) ==
LOC: ORSCSDS 10:00
PROVIDERS: Internal Medicine Gastroenterology
PROC: 0DBH8ZX Excision of Cecum, Via Natural or Artificial Opening Endoscopic, Diagnostic (ICD-10-PCS; principal; 2023-02-22 11:15)
PROC: 0DJ08ZZ Inspection of Upper Intestinal Tract, Via Natural or Artificial Opening Endoscopic (ICD-10-PCS; principal; 2023-02-22 11:15)
PROC: 0DBL8ZX Excision of Transverse Colon, Via Natural or Artificial Opening Endoscopic, Diagnostic (ICD-10-PCS; principal; 2023-02-22 11:15)
DX: K21.9 Gastro-esophageal reflux disease without esophagitis (principal); R10.13 Epigastric pain; R13.14 Dysphagia, pharyngoesophageal phase; K62.5 Hemorrhage of anus and rectum; Z86.010 Personal history of colon polyps; C88.4 Extranodal marginal zone B-cell lymphoma of mucosa-associated lymphoid tissue [MALT-lymphoma]; D12.3 Benign neoplasm of transverse colon; K64.8 Other hemorrhoids; I12.9 Hypertensive chronic kidney disease with stage 1 through stage 4 chronic kidney disease, or unspecified chronic kidney disease; N18.32 Chronic kidney disease, stage 3b; E78.5 Hyperlipidemia, unspecified; Z85.72 Personal history of non-Hodgkin lymphomas; Z87.891 Personal history of nicotine dependence; Z80.0 Family history of malignant neoplasm of digestive organs; Z79.899 Other long term (current) drug therapy
CPT/HCPCS: 88305; J2405; J2704; J7120

== ENCOUNTER 2023-07-26 08:07 | Day surgery (SDC) | payer OTHER ==
[~2023-07-26] VITALS: Ht 154.9 cm; Wt 50.1 kg
[2023-07-26] MEDS ORDERED: propofoL 50 ML IV ONE (08:46)
[2023-07-26] MEDS ORDERED: Lactated Ringer's 1,000 ML IV ONE ×2 (08:46→09:08)
[2023-07-26 10:11] VITALS: BP 118/62
== END 2023-07-26 10:17 | disposition home or self-care (01) ==
LOC: ORSCSDS 08:07
PROVIDERS: Internal Medicine Gastroenterology
PROC: 0DBH8ZX Excision of Cecum, Via Natural or Artificial Opening Endoscopic, Diagnostic (ICD-10-PCS; principal; 2023-07-26 09:15)
DX: Z85.72 Personal history of non-Hodgkin lymphomas (principal); K64.8 Other hemorrhoids; I12.9 Hypertensive chronic kidney disease with stage 1 through stage 4 chronic kidney disease, or unspecified chronic kidney disease; N18.9 Chronic kidney disease, unspecified; E78.5 Hyperlipidemia, unspecified; K21.9 Gastro-esophageal reflux disease without esophagitis; Z79.899 Other long term (current) drug therapy
CPT/HCPCS: 88305; J2704; J7120

== ENCOUNTER → 2023-11-10 | Outpatient (CLI) | payer OTHER ==
[2023-11-10 09:31] LABS: Source, Urine Clean Catch
[2023-11-10 13:11] LABS: Appearance, Urine Clear (Clear); Bilirubin, Urine Neg (Neg); Blood, Urine Neg (Neg); Glucose Qualitative, Urine Neg (Neg); Ketones, Urine Neg (Neg); Leukocyte Esterase, Urine Neg (Neg); Nitrite, Urine Neg (Neg); Protein, Urine Neg (Neg); Urobilinogen, Urine NORM (Normal)
[2023-11-10 13:27] LABS: Color, Urine Pale Yellow (P-Yellow)
== END | disposition home or self-care (01) ==
LOC: LAB SHORT 06:00 → LAB 06:00
PROVIDERS: Hospitalist
DX: I12.9 Hypertensive chronic kidney disease with stage 1 through stage 4 chronic kidney disease, or unspecified chronic kidney disease (principal); N18.32 Chronic kidney disease, stage 3b; R82.90 Unspecified abnormal findings in urine
CPT/HCPCS: 81003

== ENCOUNTER → 2024-02-16 | Outpatient (CLI) | payer OTHER ==
[2024-02-16 17:10] LABS: BASOPHILS ABSOLUTE AUTO 0.03 K/mm3 (0.00-0.23); BASOPHILS PERCENT AUTO 0 % (0-2); EOSINOPHILS PERCENT AUTO 0 % (0-6); Hematocrit 36.2 % (33.0-51.0); IMMATURE GRAN ABSOLUTE AUTO 0.06 K/mm3 (0.00-0.10); IMMATURE GRAN PERCENT AUTO 1 % (0-1); LYMPHOCYTES ABSOLUTE AUTO 0.51 K/mm3 (0.84-5.20); LYMPHOCYTES PERCENT AUTO 5 % (21-46); MONOCYTES ABSOLUTE AUTO 0.63 K/mm3 (0.16-1.47); MONOCYTES PERCENT AUTO 6 % (4-13); Mean Corpuscular HGB 31.4 pg (26.0-34.0); Mean Corpuscular HGB Conc 33.1 g/dL (31.5-36.5); Mean Corpuscular Volume 95 fL (80-100); Mean Platelet Volume 8.9 fL (9.1-12.4); NEUTROPHILS ABSOLUTE AUTO 8.71 K/mm3 (1.96-9.15); NEUTROPHILS PERCENT AUTO 88 % (41-73); Platelet Count 210 K/mm3 (150-400); RDW Standard Deviation 42.3 fL (35.1-46.3); Red Blood Cell Count 3.82 M/mm3 (3.80-5.20); White Blood Cell Count 9.94 K/mm3 (4.00-11.30)
[2024-02-16 17:19] LABS: Albumin, Blood 3.7 g/dL (3.4-5.0); Albumin/Globulin Ratio 0.9 (0.8-1.8); Bun/Creatinine Ratio 11.1 (12.0-20.0); Calcium, Blood 8.9 mg/dL (8.5-10.1); Creatinine, Blood 1.44 mg/dL (0.40-1.00); Globulin, Blood 4.2 g/dL (2.2-4.0); Potassium, Blood 3.7 mmol/L (3.5-5.5); Total Protein, Blood 7.9 g/dL (6.4-8.2)
== END | disposition home or self-care (01) ==
LOC: LAB 17:05 → LAB SHORT 17:05
PROVIDERS: Physician Assistant
DX: R53.83 Other fatigue (principal)
CPT/HCPCS: 80053; 85025

== ENCOUNTER → 2024-11-04 | Outpatient (CLI) | payer OTHER ==
[~2024-11-04] MED LIST changes: +ACET500; +ACIDOPHILUS1 EAC3; +OLME5TAB; +POLY500
== END ==
LOC: LAB SHORT 16:31 → LAB 16:31
DX: R30.0 Dysuria (principal)
CPT/HCPCS: 87077; 87086; 87186